=== PATIENT | male | born 1970 | race Caucasian/White ===

== ENCOUNTER → 2021-03-15 08:27 | Outpatient (BNVA) | payer OTHER, SELFPAY | PROVIDERS: Visit Provider Internal Medicine | DX: S60.011A Contusion of right thumb without damage to nail, initial encounter (principal); W22.09XA Striking against other stationary object, initial encounter | CPT/HCPCS: 73130; 99203 ==

== ENCOUNTER → 2021-03-21 08:04 | Outpatient (BNVA) | payer OTHER, SELFPAY | PROVIDERS: Visit Provider Internal Medicine | DX: S63.601A Unspecified sprain of right thumb, initial encounter (principal); X58.XXXA Exposure to other specified factors, initial encounter | CPT/HCPCS: 99213 ==